=== PATIENT | female | born 1975 | race African-American/Black ===

== ENCOUNTER 2021-05-01 12:55 | Emergency (ER) | payer OTHER ==
[2021-05-01 13:05] VITALS: BP 139/83; PULSE 98; TEMP 97.7; BMI 29.6
[2021-05-01] MEDS ORDERED: DIPHTH,PERTUSS(ACELL),TET 0.5 ML DISP.SYRIN IM ONE ×2 (13:24→13:26)
== END 2021-05-01 13:43 | disposition home or self-care (01) ==
LOC: JERFT 12:55
PROC: 3E0234Z Introduction of Serum, Toxoid and Vaccine into Muscle, Percutaneous Approach (ICD-10-PCS; principal; 2021-05-01)
DX: S60.922A Unspecified superficial injury of left hand, initial encounter (principal)
CPT/HCPCS: 90715; 99283-25